=== PATIENT | female | born 1945 | race Caucasian/White ===

== ENCOUNTER 2017-06-15 17:23 | Emergency (ER) | payer MEDICARE, OTHER, SELFPAY ==
[2017-06-15 17:43] VITALS: BP 145/93; PULSE 84; RESP 24; TEMP 36.8; O2SAT 92; BMI 24.3
--- NOTE | 2017-06-15 17:55 | XR_ITS ---
XR chest 2V HISTORY: ITS.REASON: COUGH AND CONGESTION ORDERING PHYSICIAN: Erasmo Alejandro PATIENT AGE: 71 years COMPARISON: 04/01/2016 FINDINGS: The cardiomediastinal silhouette and pulmonary vascularity are within normal limits. There is hyperinflation with hyperlucency consistent with COPD. There is eventration of the hemidiaphragms. No lobar consolidation or collapse.. Nodular opacities in the lung bases consistent with nipple shadows No acute bony abnormalities. IMPRESSION: COPD with hyperinflation which is worse on today's exam compared to the previous study.
[2017-06-15 18:26] LABS: UTC Influenza A Antigen Negative (Negative); UTC Influenza B Antigen Negative (Negative)
--- NOTE | 2017-06-15 19:02 | HMH.EDUTC ---
[facility] [place] Disposition Clinical Impression: COPD with exacerbation Disposition: Left Against Medical Advice Condition on Discharge: Fair Referrals: Ruthie Luna [Primary Care Provider] - (plans to call in morning, aware to report to ER for new or worsening symptoms immediately. 911 for difficulty breathing) Time of Disposition: 19:24 Medical Decision Making Vital Signs: 06/15/17 17:43 Temperature 98.2 F Temperature Source Temporal Artery Scan Pulse Rate [Right] 84 Respiratory Rate 24 Blood Pressure [Right Arm] 145/93 Blood Pressure Mean [Right Arm] 110 Blood Pressure Source [Right Arm] Automatic Cuff Blood Pressure Position [Right Arm] Sitting 02 Sat by Pulse Oximetry 92 L Oxygen Delivery Method Room Air - Lab Data Lab results reviewed: Yes: I reviewed the patient's lab results. Lab Results 06/15/17 17:54: Influenza Type A Ag Negative, Influenza Type B Ag Negative Orders (Tests/Meds): ED MEDICATIONS Discontinued Medications Generic Name Dose Route Start Last Admin Trade Name Freq PRN Reason Stop Dose Admin Albuterol/Ipratropium 3 ml 06/15/17 19:04 06/15/17 19:08 Duoneb 3ml Neb IH 06/15/17 19:05 3 ml ONCE ONE Administration Methylprednisolone Sodium Succinate 125 mg 06/15/17 19:10 06/15/17 19:14 Solu-Medrol 125mg/2ml Vial IM 06/15/17 19:11 125 mg ONCE ONE Administration ORDERS Category Date Time Status CXR 2 view (NOT portable) [XR chest 2V] Stat Exams 06/15/17 17:55 Taken Arterial Blood Gas Stat RT 06/15/17 19:04 Stop Req - Radiology Data #1 Image(s): Chest Image Reviewed: Yes I reviewed the patient's radiology image, Yes I reviewed the patient's radiology image w/the ED provider [place] w. RADHA Heranndez MD around 1830. no acute findings. COPD. - Physician Consults Physician Consulted: Dr. Britton ER Time: 18:50 Reason -: Pt condition Comment/Response: Discussed PMHx, HPI, exam, reminded him on CXR we rvwd together earlier. Aware of my concerns with exam and need to transfer to ER. Does not feel that is necessary at this time. Would like patient to receive duoneb once respiratory is available although this may be another 30 minutes according to RT and after duoneb, an ABG. he will review ABG results and IF he feels patient needs to be admitted, will come to [facility] to see her. - Laurent Inquiry Pt receiving controlled substance: No - Reevaluation(s) Time: 18:45 Reevaluation #1: 1844: Discussed concerning exam with patient. She agrees that last time she was this bad she was admitted. Suggested transfer to ER. Pt agreeable. 1849: Consulted Dr. Britton, ER MD. See consult 1899: Will, RT in clinic. Aware of need for ABG. He feels pt should be in ER and ask that I call my bakery manager. Symone was called and notified of ER MD's reluctance to accept patient. She suggest continuing with duoneb, ABG and steroid if pt stable, which she is, and then based on results, discussing pt again with ER MD. IF still not willing, call primary care in [place] and/or service provider; whichever pt prefers. Will aware and reports to BS to initiate duoneb. 1911: pt refusing ABG. Educated about the ABG and the necessity of it at this time based on her condition. Still refuses stating that she is Very familiar and very tired of them . Request to be discharged home and forget about transfer to ER and admission. Rvwd the risks associated with leaving in her condition. Aware I will not discharge her and that is she chooses to leave, she is leaving against medical advice. I can handle that. I will do that. Again reinforced the risks associated w/ severe COPD exacerbations and hypoxemia. I know. I accept those risks. pt goes on to explain the risk associated with low oxygen to her brain and heart. States she knows I have her best interest in mind but she really rather just go home then have an ABG or any further treatment at this time. She plans to call PCP in the morning and agrees if any new
--- NOTE | 2017-06-15 19:05 | ED_ITS ---
[facility] [place] Disposition Clinical Impression: COPD with exacerbation Disposition: Left Against Medical Advice Condition on Discharge: Fair Referrals: Ruthie Luna [Primary Care Provider] - (plans to call in morning, aware to report to ER for new or worsening symptoms immediately. 911 for difficulty breathing) Time of Disposition: 19:24 Medical Decision Making Vital Signs: 06/15/17 17:43 Temperature 98.2 F Temperature Source Temporal Artery Scan Pulse Rate [Right] 84 Respiratory Rate 24 Blood Pressure [Right Arm] 145/93 Blood Pressure Mean [Right Arm] 110 Blood Pressure Source [Right Arm] Automatic Cuff Blood Pressure Position [Right Arm] Sitting 02 Sat by Pulse Oximetry 92 L Oxygen Delivery Method Room Air - Lab Data Lab results reviewed: Yes: I reviewed the patient's lab results. Lab Results 06/15/17 17:54: Influenza Type A Ag Negative, Influenza Type B Ag Negative Orders (Tests/Meds): ED MEDICATIONS Discontinued Medications Generic Name Dose Route Start Last Admin Trade Name Freq PRN Reason Stop Dose Admin Albuterol/Ipratropium 3 ml 06/15/17 19:04 06/15/17 19:08 Duoneb 3ml Neb IH 06/15/17 19:05 3 ml ONCE ONE Administration Methylprednisolone Sodium Succinate 125 mg 06/15/17 19:10 06/15/17 19:14 Solu-Medrol 125mg/2ml Vial IM 06/15/17 19:11 125 mg ONCE ONE Administration ORDERS Category Date Time Status CXR 2 view (NOT portable) [XR chest 2V] Stat Exams 06/15/17 17:55 Taken Arterial Blood Gas Stat RT 06/15/17 19:04 Stop Req - Radiology Data #1 Image(s): Chest Image Reviewed: Yes I reviewed the patient's radiology image, Yes I reviewed the patient's radiology image w/the ED provider [place] w. RADHA Hernandez MD around 1830. no acute findings. COPD. - Physician Consults Physician Consulted: Dr. Britton ER Time: 18:50 Reason -: Pt condition Comment/Response: Discussed PMHx, HPI, exam, reminded him on CXR we rvwd together earlier. Aware of my concerns with exam and need to transfer to ER. Does not feel that is necessary at this time. Would like patient to receive duoneb once respiratory is available although this may be another 30 minutes according to RT and after duoneb, an ABG. he will review ABG results and IF he feels patient needs to be admitted, will come to [facility] to see her. - Laurent Inquiry Pt receiving controlled substance: No - Reevaluation(s) Time: 18:45 Reevaluation #1: 1848: Discussed concerning exam with patient. She agrees that last time she was this bad she was admitted. Suggested transfer to ER. Pt agreeable. 1849: Consulted Dr. Britton, ER MD. See consult 1899: Will, RT in clinic. Aware of need for ABG. He feels pt should be in ER and ask that I call my airport operations manager. Symone was called and notified of ER MD's reluctance to accept patient. She suggest continuing with duoneb, ABG and steroid if pt stable, which she is, and then based on results, discussing pt again with ER MD. IF still not willing, call primary care in [place] and/or service provider; whichever pt prefers. Will aware and reports to BS to initiate duoneb. 1911: pt refusing ABG. Educated about the ABG and the necessity of it at this time based on her condition. Still refuses stating that she is Very familiar and very tired of them . Request to be discharged home and forget about transfer to ER and admission. R
== END 2017-06-15 19:44 | disposition left against medical advice (07) ==
PROVIDERS: Emergency Provider Nurse Practitioner Family; Family Provider Pediatrics; PCP Pediatrics
DX: J44.1 Chronic obstructive pulmonary disease with (acute) exacerbation (principal); Z53.21 Procedure and treatment not carried out due to patient leaving prior to being seen by health care provider; I10 Essential (primary) hypertension; I25.2 Old myocardial infarction; B19.20 Unspecified viral hepatitis C without hepatic coma; F17.210 Nicotine dependence, cigarettes, uncomplicated; Z79.899 Other long term (current) drug therapy; Z88.5 Allergy status to narcotic agent
CPT/HCPCS: 71046; 87804; 96372; 99202

== ENCOUNTER → 2017-08-17 16:20 | Outpatient (CLI) | payer MEDICARE, OTHER, SELFPAY ==
--- NOTE | 2017-08-17 16:31 | XR_ITS ---
XR chest 2V HISTORY: ITS.REASON: COPD ORDERING PHYSICIAN: Referral Provider, PATIENT AGE: 71 years COMPARISON: 06/15/2017 FINDINGS: The cardiomediastinal silhouette and pulmonary vascularity are within normal limits. No lobar consolidation or collapse is evident. There is mild hyperinflation and hyperlucency of the upper lobes consistent with COPD. Previously noted opacity in the right lung base less apparent on today's exam.. No acute bony abnormalities. IMPRESSION: COPD, no change with no acute finding
== END ==
PROVIDERS: PCP Pediatrics
DX: J44.9 Chronic obstructive pulmonary disease, unspecified (principal)
CPT/HCPCS: 71046

== ENCOUNTER → 2017-11-01 14:34 | Outpatient (POV) | payer MEDICARE, MEDICAID, SELFPAY ==
[2017-11-01 14:49] VITALS: BP 139/88; PULSE 77; RESP 18; O2SAT 99
--- NOTE | 2017-11-01 16:26 | HMH.PMCON ---
Assessment and Plan (1) Osteoarthritis Current visit: Yes Status: Chronic Category: Medical Code(s): M19.90 - Unspecified osteoarthritis, unspecified site - Assessment and plan all Dx Assessment and Plan for all problems:: I believe the patient should pursue surgery as soon as possible. We will start her on diclofenac 75 mg 1 p.o. twice daily along with gabapentin 300 mg 1 p.o. 3 times daily. Patient is to start this slowly and titrated up. Patient and I had a discussion about potential side effects and she is to call the office if she starts exhibiting any of these signs. Patient states that tomorrow she has a cardiology appointment to determine if she can be cleared for surgery. I will follow-up with this patient in 1 month. This note was dictated using voice recognition software and may contain errors or omissions HPI - Data of Consult Consult date: 11/01/17 Requesting Physician: Lucinda Crabtree APRN Primary Care Provider: Ruthie Ng Provider: Ruthie Luna - Consult Narrative Reason for consult: Right hip pain History of present illness: Ms. Summers is a 71 year old female resents today for consultation in regards to her right hip pain. Patient is a surgical candidate for hip replacement. Patient is waiting for cardiac clearance due to a history of an MT. Patient has had intra-articular hip injections in the past. Patient states she had good relief with them originally however she has not had had good relief with them since. Patient states that she is interested in whatever I will take the pain away until she is cleared for her surgery. Patient is not on any anti-inflammatories. Patient states she has never been told she cannot take them. Patient is also not on any gabapentin. Patient is on diazepam. Patient states that she has had Percocet in the past and that this has been very helpful to her. I do not see this prescription or [place]. I discussed with the patient that we do not prescribe controlled substances on her first visit and we would try to control the pain with other modalities. Patient rates her pain today at 8 out of 10. Patient's tried and failed physical therapy, chiropractic therapy. Patient denies numbness or tingling patient states all movement increases her pain while nothing decreases it. CC: Lucinda Crabtree APRN [facility] History I have reviewed the patient's past medical history: Yes Medical History: Reports:: Chronic Obstructive Pulmonary Disease (COPD), Hypertension, Myocardial Infarction Denies:: Diabetes Mellitus Type 2 Other Medical History: Reports: Liver Disease, Other (Hep C positive) Other Surgeries: Yes: - *Social History Smoking Status: Current every day smoker Tobacco Type: cigarettes # Packs/Day (cigarettes): 1 Alcohol Intake: never Occupational Status: other Housing: house - Psychiatric History Expresses thoughts of harming self/others: None Suicide Plan Description: No Plan Review of Systems - Review of Systems ROS General: no recent weight change, no fever, no sleep disturbances Respiratory: no cough, no shortness of air, no recurring pulmonary infections Cardiovascular/Peripheral Vascular: No chest pain, No palpitations, no edema, no shortness of breath. Gastrointestinal: no incontinence, normal bowel movements reported Genitourinary: no incontinence Musculoskeletal: Bilateral hip pain Psychiatric: normal mood/ affect Neurological: [denies weakness in extremities], [denies balance issues] Meds Home Medications Medication Instructions Recorded Confirmed Type Albuterol Sulfate [Albuterol HFA 18 gm INHALATION DAILY 06/15/17 06/15/17 History Inhaler] Atorvastatin Calcium [Atorvastatin 40 mg PO DAILY 06/15/17 06/15/17 History 40mg Tab] Metoprolol Tartrate [Lopressor 25 mg PO BID 06/15/17 06/15/17 History 25mg tablet] diazePAM [Valium 2mg tablet] 2 mg PO NEEDED PRN 11/01/17 11/01/17 Histo
--- NOTE | 2017-11-01 16:29 | P.CONS_ITS ---
Assessment and Plan (1) Osteoarthritis Current visit: Yes Status: Chronic Category: Medical Code(s): M19.90 - Unspecified osteoarthritis, unspecified site - Assessment and plan all Dx Assessment and Plan for all problems:: I believe the patient should pursue surgery as soon as possible. We will start her on diclofenac 75 mg 1 p.o. twice daily along with gabapentin 300 mg 1 p.o. 3 times daily. Patient is to start this slowly and titrated up. Patient and I had a discussion about potential side effects and she is to call the office if she starts exhibiting any of these signs. Patient states that tomorrow she has a cardiology appointment to determine if she can be cleared for surgery. I will follow-up with this patient in 1 month. This note was dictated using voice recognition software and may contain errors or omissions HPI - Data of Consult Consult date: 11/01/17 Requesting Physician: Lucinda Crabtree APRN Primary Care Provider: Ruthie Ng Provider: Ruthie Luna - Consult Narrative Reason for consult: Right hip pain History of present illness: Ms. Summers is a 71 year old female resents today for consultation in regards to her right hip pain. Patient is a surgical candidate for hip replacement. Patient is waiting for cardiac clearance due to a history of an [place]. Patient has had intra-articular hip injections in the past. Patient states she had good relief with them originally however she has not had had good relief with them since. Patient states that she is interested in whatever I will take the pain away until she is cleared for her surgery. Patient is not on any anti- inflammatories. Patient states she has never been told she cannot take them. Patient is also not on any gabapentin. Patient is on diazepam. Patient states that she has had Percocet in the past and that this has been very helpful to her. I do not see this prescription or TERESO. I discussed with the patient that we do not prescribe controlled substances on her first visit and we would try to control the pain with other modalities. Patient rates her pain today at 8 out of 10. Patient's tried and failed physical therapy, chiropractic therapy. Patient denies numbness or tingling patient states all movement increases her pain while nothing decreases it. CC: Lucinda Crabtree APRN [facility] History I have reviewed the patient's past medical history: Yes Medical History: Reports:: Chronic Obstructive Pulmonary Disease (COPD), Hypertension, Myocardial Infarction Denies:: Diabetes Mellitus Type 2 Other Medical History: Reports: Liver Disease, Other (Hep C positive) Other Surgeries: Yes: - *Social History Smoking Status: Current every day smoker Tobacco Type: cigarettes # Packs/Day (cigarettes): 1 Alcohol Intake: never Occupational Status: other Housing: house - Psychiatric History Expresses thoughts of harming self/others: None Suicide Plan Description: No Plan Review of Systems - Review of Systems ROS General: no recent weight change, no fever, no sleep disturbances Respiratory: no cough, no shortness of air, no recurring pulmonary infections Cardiovascular/Peripheral Vascular: No chest pain, No palpitations, no edema, no shortness of breath. Gastrointestinal: no incontinence, normal bowel movements reported Genitourinary: no incontinence Musculoskeletal: Bilateral hip pain Psychiatric: normal mood/ affect Neurological: [denies weakness in extremities], [denies balance issues] Meds Home Medications
== END ==
PROVIDERS: Family Provider Pediatrics; PCP Pediatrics; Visit Provider Clinical Nurse Specialist Family Health
DX: M16.11 Unilateral primary osteoarthritis, right hip (principal)
CPT/HCPCS: 99202

== ENCOUNTER → 2018-01-17 14:25 | Outpatient (POV) | payer MEDICARE, MEDICAID, SELFPAY ==
[2018-01-17 14:40] VITALS: BP 171/80; PULSE 96; RESP 18; O2SAT 97; BMI 21.1
--- NOTE | 2018-01-17 16:26 | HMH.PAINSOAP ---
[facility] Pain Management SOAP Note Subjective:: Patient is a pleasant 72-year-old white female who presents today for follow-up. Patient was started on diclofenac and gabapentin at her last visit she states that this did not help her. Patient is in need of hip surgery however she has not been cleared by her dentist. Patient states she needs something to help her get out of pain. She states that she is now off of her diazepam. Patient's tried Percocet and [place] with not much relief. I discussed with the patient that we do not do medication management. I encouraged her to get her clearance as soon as possible. Patient rates her pain a 9 out of 10 today. ROS General: no recent weight change, no fever, no sleep disturbances Respiratory: no cough, no shortness of air, no recurring pulmonary infections Cardiovascular/Peripheral Vascular: No chest pain, No palpitations, no edema, no shortness of breath. Gastrointestinal: no incontinence, normal bowel movements reported Genitourinary: no incontinence Musculoskeletal: Bilateral hip pain Psychiatric: normal mood/ affect, uncomfortable Neurological: Denies balance issues Objective:: Physical Exam General: Alert and oriented x3, no acute distress, pleasant and cooperative, [on room air] Lungs: Resps E/U, Symmetrical chest expansion, Eyes: PERRL Musculoskeletal: Range of motion bilateral hips guarded secondary to pain, deep tendon reflexes normal, strength in upper and lower extremities [5/5], [abnormal gait noted] Neurological: speech clear, broomcorn seeder equal, no gross sensory deficits Assessment:: Bilateral hip pain, osteoarthritis Plan:: I discussed with the patient that we do not do medication management. Patient understands she is going to be following up with her primary care physician. Patient has tried and failed injections and at this time and that is what I can offer her. Patient has tried NSAIDs along with [place] and Percocet and gabapentin with no relief. This note was dictated using voice recognition software and may contain errors or omissions
--- NOTE | 2018-01-17 16:29 | P.CONS_ITS ---
[facility] Pain Management SOAP Note Subjective:: Patient is a pleasant 72-year-old white female who presents today for follow-up. Patient was started on diclofenac and gabapentin at her last visit she states that this did not help her. Patient is in need of hip surgery however she has not been cleared by her dentist. Patient states she needs something to help her get out of pain. She states that she is now off of her diazepam. Patient's tried Percocet and [place] with not much relief. I discussed with the patient that we do not do medication management. I encouraged her to get her clearance as soon as possible. Patient rates her pain a 9 out of 10 today. ROS General: no recent weight change, no fever, no sleep disturbances Respiratory: no cough, no shortness of air, no recurring pulmonary infections Cardiovascular/Peripheral Vascular: No chest pain, No palpitations, no edema, no shortness of breath. Gastrointestinal: no incontinence, normal bowel movements reported Genitourinary: no incontinence Musculoskeletal: Bilateral hip pain Psychiatric: normal mood/ affect, uncomfortable Neurological: Denies balance issues Objective:: Physical Exam General: Alert and oriented x3, no acute distress, pleasant and cooperative, [on room air] Lungs: Resps E/U, Symmetrical chest expansion, Eyes: PERRL Musculoskeletal: Range of motion bilateral hips guarded secondary to pain, deep tendon reflexes normal, strength in upper and lower extremities [5/5], [abnormal gait noted] Neurological: speech clear, projector operator equal, no gross sensory deficits Assessment:: Bilateral hip pain, osteoarthritis Plan:: I discussed with the patient that we do not do medication management. Patient understands she is going to be following up with her primary care physician. Patient has tried and failed injections and at this time and that is what I can offer her. Patient has tried NSAIDs along with [place] and Percocet and gabapentin with no relief. This note was dictated using voice recognition software and may contain errors or omissions
== END ==
PROVIDERS: Family Provider Pediatrics; PCP Pediatrics; Visit Provider Clinical Nurse Specialist Family Health
DX: M25.559 Pain in unspecified hip (principal); M19.90 Unspecified osteoarthritis, unspecified site
CPT/HCPCS: 99213

== ENCOUNTER → 2018-01-31 12:02 | Outpatient (CLI) | payer MEDICARE, OTHER, MEDICAID, SELFPAY ==
[2018-01-31 12:42] LABS: Basophils # 0.1 K/mm3 (0-0.2); Eosinophils # 0.2 K/mm3 (0.0-0.4); Hematocrit 42.8 % (37.0-47.0); Hemoglobin 13.9 g/dL (12.2-16.2); Lymphocytes # 1.4 K/mm3 (0.7-4.5); Lymphocytes % 17.3 K/mm3 (10-50); Mean Corpuscular HGB Conc 32.4 g/dL (31.8-35.4); Mean Corpuscular Hemoglobin 28.9 pg (27.0-31.2); Mean Corpuscular Volume 89.1 fl (81-99); Mean Platelet Volume 6.9 fl (7.4-10.4); Monocytes # 0.5 K/mm3 (0.1-1.0); Monocytes % 6.3 % (1.7-9.3); Neutrophils # 5.7 K/mm3 (1.8-7.8); Neutrophils % 73.4 % (37.0-80.0); Platelet Count 271 K/mm3 (142-424); Red Cell Distribution Width 13.4 % (11.5-17.5); White Blood Count 7.8 K/mm3 (4.8-10.8)
[2018-01-31 13:43] LABS: Alanine Aminotransferase 20 U/L (12-78); Albumin Level 3.5 gm/dL (3.4-5.0); Albumin/Globulin Ratio 1.2 (1.1-1.8); Alkaline Phosphatase 56 U/L (46-116); Anion Gap 8.5 mEq/L (5-15); Aspartate Amino Transferase 14 U/L (15-37); Bilirubin,Total 0.3 mg/dL (0.2-1.0); Blood Urea Nitrogen 10 mg/dL (7-18); Calcium 8.6 mg/dL (8.5-10.1); Carbon Dioxide 33 mmol/L (21.0-32.0); Chloride 108 mmol/L (98-107); Estimated Glomerular Filt Rate 49 ml/min (>60); GFR (African American) 59 ML/MIN (>60); Globulin 2.9 gm/dl (1.3-3.2); Glucose 109 mg/dL (74-106); Potassium 4.5 mmoL/L (3.5-5.1); Sodium 145 mmol/L (136-145); Total Protein,Serum 6.4 gm/dL (6.4-8.2)
[2018-02-04 07:42] LABS: Hepatitis C Antibody >11.0 HIGH
== END ==
PROVIDERS: PCP Pediatrics; Visit Provider Pediatrics
DX: B19.20 Unspecified viral hepatitis C without hepatic coma (principal)
CPT/HCPCS: 36415; 80053; 85025; 87380; 87900